=== PATIENT | female | born 1950 | race Caucasian/White ===

== ENCOUNTER 2018-04-14 11:36 | Emergency (ER) | payer OTHER ==
--- OUTSIDE RECORDS SUMMARY | 2018-04-14 11:38 | XMS REPORT | Clinical Summary ---
:1950 Author Organization [facility] Address [address] [place] [address] Care Team Providers Name Role Phone Estefany Ellsworth DO Primary Care Provider Allergies No Known Allergies Current Medications Prescription Sig. Disp. Refills Start Date End Date Status simvastatin Take 20 mg by mouth Active (ZOCOR) 20 MG nightly. tablet tamsulosin Take 0.4 mg by mouth Active (FLOMAX) 0.4 mg daily. capsule,extended release 24hr lansoprazole Take 30 mg by mouth Active (PREVACID) 30 MG daily. capsule UNABLE TO FIND 1 mL. Glutathione ATP Active injection 1 shot every 4th day aspirin (ECOTRIN) Take 81 mg by mouth Active 81 MG enteric daily. coated tablet meloxicam (MOBIC) Take 15 mg by mouth Active 15 mg tablet daily. ALBUTEROL SULFATE Inhale. Active INHL multivitamin with Take 1 tablet by Active minerals tablet mouth daily. sulfamethoxazole-t sulfamethoxazole 800 Active rimethoprim mg-trimethoprim 160 (BACTRIM DS) mg tablet 800-160 mg per tablet cefdinir (OMNICEF) TAKE ONE CAPSULE BY 0 03/09/2018 Active 300 MG capsule MOUTH EVERY 12 HOURS nitrofurantoin, nitrofurantoin Active macrocrystal-monoh monohydrate/macrocrys ydrate, (MACROBID) tals 100 mg capsule 100 MG capsule estradiol estradiol Active (ESTRACE) 0.5 MG tablet budesonide/formote Inhale 2 (two) times Discontinued rol fumarate a day. 8 (SYMBICORT INHL) Active Problems Problem Noted Date Urinary frequency 03/08/2018 Encounters Date Type Specialty Care Team Description 03/13/2018 Hospital Encounter Urology Dejan Gonzalez MD 03/13/2018 Procedure Pass Urology 03/13/2018 Surgery Urology Carlos, CYSTOSCOPY W/ Dejan Unger MD INSTALLATION OF 100 UNITS OF BOTOX INTO BLADDER, URETHRAL DILATION 03/05/2018 Pre-Admit Testing Pre-Admission [facility], Preoperative testing Appointment Testing Dejan Unger MD (Primary Dx) 03/05/2018 Anesthesia Event Urology Kelli Wheat, [employer]PER[employer]OR after 04/13/2017 Social History Tobacco Use Types Packs/Day Years Used Date Never Smoker Smokeless Tobacco: Never Used Alcohol Use Drinks/Week oz/Week Comments No Sex Assigned at Date Recorded Not on file Last Filed Vital Signs Vital Sign Reading Time Taken Blood Pressure 152/70 03/13/2018 10:00 AM CDT Pulse 72 03/13/2018 10:00 AM CDT Temperature 36.5 C (97.7 F) 03/13/2018 10:00 AM CDT Respiratory Rate 17 03/13/2018 10:00 AM CDT Oxygen Saturation 98% 03/13/2018 10:00 AM CDT Inhaled Oxygen Concentration - - Weight 65.7 kg (144 lb 12.8 oz) 03/13/2018 6:36 AM CDT Height 165.1 cm (5' 5") 03/05/2018 2:11 PM CDT Body Mass Index 24.1 03/13/2018 6:36 AM CDT Plan of Treatment Health Maintenance Due Date Last Done Comments BREAST CANCER SCREENING 2000 COLON CANCER SCREENING 2000 SHINGRIX VACCINE (#1) 2000 ZOSTER VACCINE 2010 PNEUMOCOCCAL POLYSACCHARIDE VACCINE AGE 65 AND OVER 2015 PNEUMOCOCCAL-13 2015 INFLUENZA VACCINE 06/03/2018 Procedures Procedure Name Priority Date/Time Associated Diagnosis Comments VA AN ELECTIVE Routine 03/13/2018 7:40 AM SUPRAGLOTTIC AIRWAY CDT Procedure Note - Amina Sosa CRNA - 03/13/2018 7:40 AM CDT Airway Date/Time: 03/13/2018 7:40 AM Performed by: AMINA SOSA Authorized by: ANA EDEN Location: OR Urgency: Elective Difficult Airway: No Resident/STUDIO ARTIST/AA: AMINA SOSA Performed by: resident/STUDIO ARTIST/AA Preoxygenated with 100% O2: Yes C-spine Precautions Maintained Throughout: Yes Mask Ventilation: Not attempted Final Airway Type: Supraglottic airway Final LMA: Classic LMA Size: 4 Number of Attempts at Approach: 1 CYSTOSCOPY W/ INSTALLATION OF 100 03/13/2018 7:30 AM CDT Overactive bladder UNITS OF BOTOX INTO BLADDER, URETHRAL DILATION Case Notes EST 1 HR; 100 UNITS OF BOTOX Special Needs EST 1 HR; 100 UNITS OF BOTOX after 04/13/2017 Results ECG 12 lead (03/05/2018 2:31 PM) Component Value Ref Range Ventricular rate 81 Atrial rate 81 VA interval 168 QRSD interval 86 QT interval 378 QTC interval 439 P axis 1 82 QRS axis 1 71 T wave axis 73 EKG impression Normal sinus rhythm-Possible Left atrial enlargement-Borderline ECG-No previous ECGs available- Specimen Performing Laboratory [facility] [address] [place] [id number] Urinalysis screen and microscopy, with reflex to culture (03/05/2018 2:30 PM) Component Value Ref Range Specimen site Random void Color, UA Straw Appearance, UA Clear Specific gravity, UA 1.009 1.001 - 1.035 pH, UA 6.0 5.0 - 8.5 Protein, UA Negative Negative Glucose, UA Negative Negative Ketones, UA Negative Negative Bilirubin, UA Negative Negative Blood, UA Small (A) Negative Nitrite, UA Negative Negative Urobilinogen, UA <2.0 <2.0 Leukocyte esterase, UA Negative Negative Epithelial cells, UA 1 /HPF WBC, UA 1 0 - 4 /HPF RBC, UA <1 0 - 5 /HPF Bacteria, UA None seen None seen Yeast, UA None seen Yeast with pseudohyphae, UA None seen Sperm, UA Few (A) Specimen Performing Laboratory Urine [facility] DEPARTMENT OF PATHOLOGY AND GENOMIC MEDICINE [address] [place] [id number] CBC hemogram (03/05/2018 2:30 PM) Component Value Ref Range WBC 4.86 4.50 - 11.00 k/uL RBC 4.18 (L) 4.20 - 5.50 m/uL HGB 12.6 12.0 - 16.0 g/dL HCT 39.1 37.0 - 47.0 % MCV 93.5 82.0 - 100.0 fL MCH 30.1 27.0 - 34.0 pg MCHC 32.2 31.0 - 37.0 g/dL RDW - SD 42.5 37.0 - 55.0 fL MPV 12.6 8.8 - 13.2 fL Platelet count 181 150 - 400 k/uL Nucleated RBC 0.00 /100 WBC Specimen Performing Laboratory Blood [facility]PARTMENT OF PATHOLOGY AND GENOMIC MEDICINE [address] [place] [id number] Urine culture (03/05/2018 2:30 PM) Component Value Ref Range Urine culture SEE COMMENTComment: Bacteriuria screen negative. Specimen Performing Laboratory [facility]PARTMENT OF PATHOLOGY AND GENOMIC MEDICINE [address] [place] [id number] Estimated GFR (03/05/2018 2:22 PM) Component Value Ref Range GFR Non Af Amer 55 (A) mL/min/1.73 m2 GFR Af Amer 67 mL/min/1.73 m2 Comment: Chronic kidney disease: <60 mL/min/1.73m2 Kidney failure: <15 mL/min/1.73m2 The estimated GFR is calculated from the IDMS-traceable Modification of Diet in Renal Disease Equation. The accuracy of the calculation is poor when the creatinine is normal. Calculated values >90 mL/min/1.73m2 are not reported. This equation has not been validated in children (<18 years), women, the elderly (>70 years), or ethnic groups other than Caucasians and Americans. Specimen Performing Laboratory Plasma specimen [facility]PART[facility] OF PATHOLOGY [facility] GENOMIC MEDICINE [address] [place] [id number] Basic metabolic panel (03/05/2018 2:22 PM) Component Value Ref Range Sodium 144 135 - 148 mEq/L Potassium 4.6 3.5 - 5.0 mEq/L Chloride 104 98 - 112 mEq/L CO2 28 24 - 31 mEq/L Anion gap 12 7 - 15 mEq/L Comment: Starting from February , anion gap calculation no longer incorporates potassium. Please note the change. BUN 16 8 - 23 mg/dL Creatinine 1.0 (H) 0.5 - 0.9 mg/dL Glucose 79 65 - 99 mg/dL Calcium 9.0 8.8 - 10.2 mg/dL Specimen Performing Laboratory Plasma specimen [facility] DEPARTMENT OF PATHOLOGY AND GENOMIC MEDICINE [address] [place] [id number] after 04/13/2017 Insurance Payer Benefit Plan / Group Subscriber ID Type Phone Address [employer]NA MEDICARE AETNA MEDICARE HMO/PPO [facility] xxxxxxxx HMO
--- OUTSIDE RECORDS SUMMARY | 2018-04-14 11:39 | XMS REPORT ---
:1950 Author Organization [employer] Care Team Providers Name Role Phone Ellsworth, Na Provider Role Unavailable Allergies, Adverse Reactions, Alerts Substance Reaction Event Type N.K.D.A. Info Not Available Non Drug Allergy Problems Problem Type Condition Code Onset Dates Condition Status Assessment Constipation, unspecified K59.00 Active constipation type Problem Incomplete bladder emptying R33.9 Active Assessment Hyperlipidemia, unspecified E78.5 Active hyperlipidemia type Assessment Hormone replacement therapy Z79.890 Active Assessment Incomplete bladder emptying R33.9 Active Problem Peptic ulcer disease K27.9 Active Problem Hormone replacement therapy Z79.890 Active Problem GERD (gastroesophageal reflux K21.9 Active disease) Problem Pulmonary emphysema, unspecified J43.9 Active emphysema type Problem Hyperlipidemia, unspecified E78.5 Active hyperlipidemia type Problem Hoarseness R49.0 Active Problem Constipation, unspecified K59.00 Active constipation type Medications Medication Code Code Instructions Start End Status Dosage System Date Date Low-Dose Aspirin NDC 0 Active not defined Vitamin B-12 ND 39540932844 1000 MCG Orally Active 1 tablet Once a day Estradiol ND 49086585625 0.5 MG Orally Active 1 tablet Lansoprazole ND 96862884799 30 MG Active TAKE ONE CAPSULE BY MOUTH EVERY DAY Simvastatin ND 34935305195 20 MG Active TAKE 1 TABLET BY MOUTH EVERY DAY Linzess ND 31301078580 145 mcg orally April 08, Aug 06, Active 1 cap daily 2017 2017 Multivitamin ND 24922200405 - Orally Active not Adults defined Mobic ND 11531364231 15 MG Orally Active 1 tablet Once a day Results No Known Results Summary Purpose [employer] Submission
[2018-04-14 12:29] LABS: Absolute Lymphocytes (CBC) 1.4 K/uL (0.7-4.9); Absolute Monocytes 0.5 K/uL (0.1-1.3); Absolute Neutrophil 3.4 K/uL (1.8-8.0); Basophils % 0.8 % (0-1.3); Eosinophils % 2.4 % (0-4.4); Hematocrit 37.9 % (36.0-45.0); Lymphocytes % 25.9 % (15.3-44.8); MCH 29.3 pg (27.0-35.0); MCV 90.5 fL (80-100); MPV 10.4 fL (7.6-11.3); Monocytes % 9.2 % (3.3-12.3); RBC Red Blood Cell Count 4.19 M/uL (3.86-4.86)
[2018-04-14 12:42] LABS: Potassium 3.8 mEq/L (3.6-5.0)
[2018-04-14 12:48] LABS: Albumin 4.2 g/dL (3.2-5.5); Bilirubin Direct 0.2 mg/dL (0-0.2); Bilirubin Total 1.4 mg/dL (0.3-1.2); Protein, Total 6.6 g/dL (6.0-8.3)
[2018-04-14 12:50] LABS: Urine Blood TRACE (NEG); Urine Glucose NEGATIVE (NEG); Urine Protein NEGATIVE (NEG); Urine pH 5.5 (5.0-7.0)
[2018-04-14 13:05] LABS: Urine Bacteria <20 /HPF (<20); Urine RBC <5 /HPF (NONE SEEN)
[2018-04-14 13:06] LABS: Urine Culture Reflex Order NOT NEEDED; Urine Mucus 1+ /HPF (NONE SEEN)
--- NOTE | 2018-04-14 13:51 | ER ---
Nurse's Notes [facility] Name: Evelyn Millan Age: 67 yrs Sex: Female : 1950 Arrival Date: 04/14/2018 Time: 11:44 Bed 18 Private MD: Estefany Ellsworth Diagnosis: Flank Pain Presentation: 04/14 11:45 Presenting complaint: Patient states: left back pain x 1 day. Pt reports she has to sv self cath, and not emptying bladder as much. Transition of care: patient was not received from another setting of care. Onset of symptoms was April 13, 2018. Care prior to arrival: None. 11:45 Method Of Arrival: Ambulatory sv 11:45 Acuity: STACIE 3 sv 12:00 Risk Assessment: Do you want to hurt yourself or someone else? Patient reports no sg desire to harm self or others. Initial Sepsis Screen: Does the patient meet any 2 criteria? No. Patient's initial sepsis screen is negative. Does the patient have a suspected source of infection? No. Patient's initial sepsis screen is negative. Historical: - Allergies: 11:47 No Known Allergies; sv - Home Meds: 11:47 aspirin 81 mg Oral TbEC 1 tab once daily [Active]; simvastatin 20 mg Oral tab 1 tab sv once daily [Active]; Flomax Oral [Active]; meloxicam oral oral [Active]; glutithyome [Active]; - PMHx: 11:47 Chronic fatigue syndrome; COPD; Hyperlipidemia; overactive bladder; sv - PSHx: 11:47 partial hysterectomy; sv - Immunization history:: Adult Immunizations up to date. - Social history:: Smoking status: Patient/guardian denies using tobacco. - Ebola Screening: : No symptoms or risks identified at this time. - Family history:: not pertinent. - Hospitalizations: : No recent hospitalization is reported. Screenin:00 Abuse screen: Denies threats or abuse. Denies injuries from another. Nutritional sg screening: No deficits noted. Tuberculosis screening: No symptoms or risk factors identified. Never had TB. Fall Risk None identified. Vital Signs: 11:47 BP 139 / 80; Pulse 83; Resp 18; Temp 98.9; Pulse Ox 98% ; Weight 65.77 kg; Height 5 ft. sv 5 in. (165.10 cm); Pain 2/10; 12:35 BP 125 / 73; Pulse 78; Resp 15; Pulse Ox 99% on R/A; mh5 13:30 BP 140 / 80; Pulse 78; Resp 17; Pulse Ox 98% on R/A; mh5 11:47 Body Mass Index 24.13 (65.77 kg, 165.10 cm) ED Course: 11:44 Patient arrived in ED. jb7 11:44 Estefany Ellsworth MD is Private Physician. jb7 11:46 Triage completed. sv 11:48 Arm band placed on left wrist. 12:00 Shaq Jimenez MD is Attending Physician. rn 12:07 Omkar Hector RN is Primary Nurse. 12:32 Initial lab(s) drawn, by ma, sent to lab. Urine collected: clean catch specimen, clear. mh5 Inserted saline lock: 22 gauge in right antecubital area, using aseptic technique. Blood collected. 12:33 Patient has correct armband on for positive identification. Placed in gown. Bed in low mh5 position. Call light in reach. Side rails up X 1. Adult w/ patient. Warm blanket given. Pulse ox on. NIBP on. 12:34 Urine Dipstick--Ancillary (enter results) Sent. 5 12:34 Urine Culture Sent. 5 12:34 Basic Metabolic Panel Sent. 5 12:34 CBC with Diff Sent. 5 12:34 Creatinine for Radiology Sent. 5 12:34 Hepatic Function Sent. 5 12:34 Lipase Sent. 5 12:34 Urine Microscopic Only Sent. 5 14:00 No provider procedures requiring assistance completed. Patient did not have IV access sg during this emergency room visit. Administered Medications: No medications were administered Outcome: 13:50 Discharge ordered by . rn 14:00 Discharged to home ambulatory, with family. 14:00 Condition: good 14:00 Discharge instructions given to patient, Instructed on discharge instructions, follow up and referral plans. medication usage, safety practices, Demonstrated understanding of instructions, follow-up care, medications, Prescriptions given X 1. 14:06 Patient left the ED. Signatures: Donya Perry RN RN Omkar Hector RN RN Shaq Jimenez MD MD rn Martinez, [facility] Brandt Canchola jb7
--- NOTE | 2018-04-14 13:51 | EDPHYS ---
Physician Documentation [facility] Name: Evelyn Millan Age: 67 yrs Sex: Female : 1950 Arrival Date: 04/14/2018 Time: 11:44 Bed 18 Private MD: Estefany Ellsworth ED Physician Shaq Jimenez HPI: 04/14 12:20 This 67 yrs old Female presents to ER via Ambulatory with complaints of Back rn Pain. 12:20 The patient presents with pain that is acute. The symptoms are located in the left mid rn back. Onset: The symptoms/episode began/occurred yesterday. The pain does not radiate. Associated signs and symptoms: Pertinent positives: weakness, Pertinent negatives: abdominal pain, chest pain, constipation, dysuria, fever, nausea, numbness, tingling, urinary retention, vomiting. Modifying factors: The patient symptoms are alleviated by nothing, the patient symptoms are aggravated by any movement. Severity of symptoms: At their worst the symptoms were mild, in the emergency department the symptoms are unchanged. The patient has experienced similar episodes in the past. Reports left mid back pain, began yesterday, no fever/chills/abd pain/sob/cough, self-caths, just finished course of levaquin last week, no trauma, noticed decreased urine output. No vomiting/diarrhea. . Historical: - Allergies: 11:47 No Known Allergies; sv - Home Meds: 11:47 aspirin 81 mg Oral TbEC 1 tab once daily [Active]; simvastatin 20 mg Oral tab 1 tab sv once daily [Active]; Flomax Oral [Active]; meloxicam oral oral [Active]; glutithyome [Active]; - PMHx: 11:47 Chronic fatigue syndrome; COPD; Hyperlipidemia; overactive bladder; sv - PSHx: 11:47 partial hysterectomy; sv - Immunization history:: Adult Immunizations up to date. - Social history:: Smoking status: Patient/guardian denies using tobacco. - Ebola Screening: : No symptoms or risks identified at this time. - Family history:: not pertinent. - Hospitalizations: : No recent hospitalization is reported. ROS: 12:20 Constitutional: Negative for fever, chills, and weight loss, Eyes: Negative for injury, rn pain, redness, and discharge, Neck: Negative for injury, pain, and swelling, Cardiovascular: Negative for chest pain, palpitations, and edema, Respiratory: Negative for shortness of breath, cough, wheezing, and pleuritic chest pain, Abdomen/GI: Negative for abdominal pain, nausea, vomiting, diarrhea, and constipation, Back: Negative for injury MS/Extremity: Negative for injury and deformity, Skin: Negative for injury, rash, and discoloration, Neuro: Negative for headache, weakness, numbness, tingling, and seizure. Exam: 12:20 Constitutional: This is a well developed, well nourished patient who is awake, alert, rn and in no acute distress. Head/Face: Normocephalic, atraumatic. Abdomen/GI: Soft, non-tender, with normal bowel sounds. No distension or tympany. No guarding or rebound. No evidence of tenderness throughout. Back: No spinal tenderness. No costovertebral tenderness. Full range of motion. Skin: Warm, dry with normal turgor. Normal color with no rashes, no lesions, and no evidence of cellulitis. MS/ Extremity: Pulses equal, no cyanosis. Neurovascular intact. Full, normal range of motion. Equal circumference. Neuro: Awake and alert, GCS 15, oriented to person, place, time, and situation. Cranial nerves II-XII grossly intact. Motor strength 5/5 in all extremities. Sensory grossly intact. Cerebellar exam normal. Normal gait. Vital Signs: 11:47 BP 139 / 80; Pulse 83; Resp 18; Temp 98.9; Pulse Ox 98% ; Weight 65.77 kg; Height 5 ft. sv 5 in. (165.10 cm); Pain 2/10; 12:35 BP 125 / 73; Pulse 78; Resp 15; Pulse Ox 99% on R/A; mh5 13:30 BP 140 / 80; Pulse 78; Resp 17; Pulse Ox 98% on R/A; mh5 11:47 Body Mass Index 24.13 (65.77 kg, 165.10 cm) sv MDM: 12:00 Patient medically screened. rn 13:49 Differential diagnosis: arthritis, Fatigue Osteoarthritis Osteoporosis sprain, UTI, rn muscle spasm. Data reviewed: vital signs, nurses notes, lab test result(s), and as a result, I will discharge patient. Counseling: I had a detailed discussion with the patient and/or guardian regarding: the historical points, exam findings, and any diagnostic results supporting the discharge/admit diagnosis, lab results, the need for outpatient follow up, to return to the emergency department if symptoms worsen or persist or if there are any questions or concerns that arise at home. Special discussion: I discussed with the patient/guardian in detail that at this point there is no indication for admission to the hospital. It is understood, however, that if the symptoms persist or worsen the patient needs to return immediately for re-evaluation. 13:50 ED course: Labs normal, UA shows signs of self-cath, no UTI, most likely muscular given rn worse with movement and was in car ride from [facility]. Has appt with her urologist in 3 days. Return precautions given. . 04/14 12:07 Order name: Basic Metabolic Panel; Complete Time: 13:21 rn 04/14 12:07 Order name: CBC with Diff; Complete Time: 13:21 rn 04/14 12:07 Order name: Creatinine for Radiology; Complete Time: 13:21 rn 04/14 12:07 Order name: Hepatic Function; Complete Time: 13:21 rn 04/14 12:07 Order name: Lipase; Complete Time: 13:21 rn 04/14 12:07 Order name: Urine Microscopic Only; Complete Time: 13:21 rn 04/14 12:07 Order name: IV Saline Lock; Complete Time: 12:07 rn 04/14 12:07 Order name: Labs collected and sent; Complete Time: 12:08 rn 04/14 12:07 Order name: Urine Dipstick-Ancillary (obtain specimen); Complete Time: 12:35 rn 04/14 12:07 Order name: Urine Culture rn 04/14 12:30 Order name: Urine Dipstick--Ancillary (enter results); Complete Time: 13:21 ag Administered Medications: No medications were administered Disposition: 04/14/18 13:50 Discharged to Home. Impression: Flank Pain. - Condition is Stable. - Discharge Instructions: Back Pain, Adult. - Prescriptions for Cyclobenzaprine 5 mg Oral Tablet - take 1 tablet by ORAL route 3 times per day As needed; 15 tablet. - Medication Reconciliation Form, Thank You Letter, Antibiotic Education, Prescription Opioid Use form. - Follow up: Private Physician; When: As needed; Reason: Recheck today's complaints, Re-evaluation by your physician. - Problem is new. - Symptoms are unchanged. Signatures: Dispatcher [employer] Donya Castelan RN RN sv Omkar Hector RN RN sg Shaq Jimenez MD MD kiln furniture saw tender: (The following items were deleted from the chart) 14:06 13:50 04/14/2018 13:50 Discharged to Home. Impression: Flank Pain. Condition is Stable. sg Forms are Medication Reconciliation Form, Thank You Letter, Antibiotic Education, Prescription Opioid Use. Follow up: Private Physician; When: As needed; Reason: Recheck today's complaints, Re-evaluation by your physician. Problem is new. Symptoms are unchanged. rn
[2018-04-14 14:32] VITALS: TEMP 98.9
[2018-04-14 14:35] VITALS: BP 140/80; O2SAT 98
== END 2018-04-14 14:06 | disposition home or self-care (01) ==
LOC: ER 11:36
DX: R10.9 Unspecified abdominal pain (principal); M54.9 Dorsalgia, unspecified; J44.9 Chronic obstructive pulmonary disease, unspecified; E78.5 Hyperlipidemia, unspecified
CPT/HCPCS: 36415; 80048; 80076; 81003; 81015; 83690; 85025; 87086; 87088; 99284

== ENCOUNTER 2025-08-15 08:22 | Day surgery (SDC) | payer OTHER ==
[2025-08-15 08:57] LABS: Absolute Lymphocytes (CBC) 1.3 K/uL (0.7-4.9); Hematocrit 40.2 % (36.0-45.0); Hemoglobin 13.4 g/dL (12.0-15.0); MCH 29.7 pg (27.0-35.0); MCHC 33.2 g/dL (32.0-36.0); MCV 89.5 fL (80-100); MPV 10.4 fL (7.6-11.3); Nucleated RBC Absolute Count 0.0 (0-0); Nucleated Red Blood Cells % 0.0 % (0-0); RBC Red Blood Cell Count 4.49 M/uL (3.86-4.86); White Blood Count 5.00 thou/uL (4.3-10.9)
[2025-08-15 09:10] LABS: PT Prothrombin Time 10.9 SECONDS (10-13.0); PTT, Activated Partial Thromb 33.5 SECONDS (27.2-37.4); Protime INR 0.96
[2025-08-15 09:18] LABS: ALT/SGPT 44.0 U/L (13-56); AST/SGOT 17.0 U/L (15-37); Albumin 3.6 g/dL (3.4-5.0); Albumin/Globulin Ratio 1.2 (1.1-1.8); Alkaline Phosphatase 78.0 U/L (45-117); Anion Gap 9.7 mEq/L (5.0-15.0); BUN Blood Urea Nitrogen 16.0 mg/dL (7-18); Bilirubin Indirect, Calculated 1.3 mg/dL (0.2-0.8); Globulin 3.1 g/dL (2.3-3.5); Glucose Level 68.0 mg/dL (74-106); Potassium 3.7 mEq/L (3.5-5.1)
[2025-08-15] MEDS: HYDROCODONE/APAP 7.5/325 MG TAB ONE (11:56)
[2025-08-15 12:11] VITALS: BMI 22.4
[2025-08-15 12:38] LABS: Color of Supernate Not Xanthochromic (Not Xantho); Color of fluid Colorless (COLORLESS); Fluid Total Volume 16.5 ml
[2025-08-15 12:43] VITALS: TEMP 97
[2025-08-15 12:49] VITALS: BP 156/68; O2SAT 98
--- NOTE | 2025-08-15 14:18 | RAD REPORT ---
XR SPINE LUMBAR PUNCTURE CLINICAL INDICATION: Memory loss. TECHNIQUE: The risks (including the risks of bleeding, infection, headache, and need for an epidural blood patch), benefits, and alternatives of the procedure were carefully explained to the patient who wished to proceed. Informed written consent was obtained and a timeout procedure was performed pr ior to beginning the study. The patient was positioned on the fluoroscopy table in an oblique prone position. The skin over the l ower back was prepped and draped in the usual, sterile fashion. Local anesthesia was used for the subcutaneous soft tissues. A lumbar puncture was performed directing a spinal needle into the spinal canal under direct fluoroscopic guidance targeting right L3-4 level, until the return of clear CSF was observed. FINDINGS: CSF appearance: Clear and free-flowing Total CSF volume removed: 15 cc. Samples were sent to the lab per the ordering physician's orders. Following completion of the procedure the needle was withdrawn and a band-aid placed over the punctur e site. Postprocedural instructions were given to the patient. Complications: None IMPRESSION: Successful fluoroscopically-guided LP, as above. Total fluoroscopy time was 00:29 minutes.
== END 2025-08-15 12:40 | disposition home or self-care (01) ==
LOC: DS 08:22 → RAD 08:22 → DS 12:40
PROVIDERS: ATTEND Psychiatry & Neurology Neurology with Special Qualifications in Child Neurology
PROC: 009U3ZX Drainage of Spinal Canal, Percutaneous Approach, Diagnostic (ICD-10-PCS; principal; 2025-08-15)
PROC: B01BZZZ Fluoroscopy of Spinal Cord (ICD-10-PCS; 2025-08-15)
DX: G31.84 Mild cognitive impairment of uncertain or unknown etiology (principal); M19.90 Unspecified osteoarthritis, unspecified site; J98.4 Other disorders of lung
CPT/HCPCS: 36415; 77003; 80048; 80076; 82542; 82945; 84157; 85025; 85610; 85730; 89050